=== PATIENT | male | born 1990 | race Caucasian/White ===

== ENCOUNTER 2021-05-24 20:30 | Emergency (ER) | payer BC, SELFPAY ==
[~2021-05-24] VITALS: Ht 160 cm; Wt 92.1 kg
--- NOTE | 2021-05-24 20:45 | NUR ---
Pt brought by self, A&Ox4, pt presents to ER with L shoulder pain and R wrist pain, skin pink and warm, cap refill <3, VSS, respirations even and unlabored
[2021-05-24 20:53] VITALS: BP_SYST 172
--- NOTE | 2021-05-24 21:05 | NUR ---
Dr Allison evaluating patient at bedside
[2021-05-24 22:27] VITALS: BP_SYST 172
--- NOTE | 2021-05-24 22:28 | NUR ---
Patient given written and verbal discharge instructions and verbalizes understanding. ER MD discussed with patient the results and treatment provided. Patient in stable condition. ID arm band removed. No Rx given. Patient educated on pain management and to follow up with PMD. Pain Scale 2/10 . Opportunity for questions provided and answered. Medication side effect fact sheet provided.
== END 2021-05-24 22:27 | disposition home or self-care (01) ==
LOC: SED 20:30
DX: S40.012A Contusion of left shoulder, initial encounter (principal); V00.848A Other accident with standing micro-mobility pedestrian conveyance, initial encounter; Y93.9 Activity, unspecified; Y92.9 Unspecified place or not applicable; Y99.9 Unspecified external cause status
CPT/HCPCS: 73030; 99284